=== PATIENT | female | born 1955 | race Caucasian/White ===

== ENCOUNTER 2020-01-14 09:03 | Emergency (ER) | payer MEDICARE ==
[~2020-01-14] VITALS: Ht 167.6 cm; Wt 81.6 kg
--- NOTE | 2020-01-14 09:52 | Emergency Department Note ---
History of Present Illnes History of Present Illness Chief Complaint: General Medicine Complaints History of Present Illness This is a 64 year old female arrived to the ED with right hand/wrist pain after sustaining a mechanical fall yesterday. Patient states pain is well- controlled only hurts to move. Patient denies any head injury or any other trauma. Patient is right-hand dominant.. Historian: Patient, Family Member Arrival Mode: Car Radiation: Reports non-radiation Severity: mild Onset quality: sudden Timing of current episode: intermittent Progression: waxing and waning Relieving factors: immobilization Exacerbating factors: movement Treatments prior to arrival: none Past Medical/Family History Physician Review I have reviewed the patient's past medical and family history. Any updates have been documented here. Past Medical History Recent Fever: No Clinical Suspicion of Infectio: No New/Unexplained Change in Ment: No Past Medical History: Hypertension, COPD, Cancer, Hyperlipedemia Other Medical History: LUNG CANCER - TREATED PSORIASIS Past Surgical History: Hysterectomy Family History Family history of heart diseas: No Other Last Tetanus: UTD Physical Exam Related Data Allergies: Coded Allergies: No Known Allergies (Unverified , 01/14/20) Triage Vital Signs Vital Signs Date Time Temp Pulse Resp B/P (MAP) Pulse Ox O2 Delivery O2 Flow Rate FiO2 01/14/20 09:06 97.5 110 22 184/117 96 Vital signs reviewed: Yes Physical Exam CONSTITUTIONAL Constitutional: Present well-developed, Present well-nourished HENT HENT: Present normocephalic, Present atraumatic, Present oropharynx clear/moist, Present nose normal HENT L/R: Present left ext ear normal, Present right ext ear normal EYES Eyes: Reports PERRL, Reports conjunctivae normal NECK Neck: Present ROM normal PULMONARY Pulmonary: Present effort normal, Present breath sounds normal CARDIOVASCULAR Cardiovascular: Present regular rhythm, Present heart sounds normal, Present capillary refill normal, Present normal rate GASTROINTESTINAL Abdominal: Present soft, Present nontender, Present bowel sounds normal GENITOURINARY Genitourinary: Present exam deferred SKIN Skin: Present warm, Present dry MUSCULOSKELETAL Musculoskeletal: Present tenderness, Present swelling; Absent ROM normal NEUROLOGICAL Neurological: Present alert, Present oriented x 3, Present no gross motor or sensory deficits PSYCHOLOGICAL Psychological: Present mood/affect normal, Present judgement normal Results Imaging Imaging results reviewed: Yes Assessment & Plan Medical Decision Making MDM 64-year-old well-appearing female arrived to the ED after sustaining a mechanical fall resulting in right wrist swelling and ecchymoses. X-ray reviewed shows no fracture, no snuffbox tenderness is noted on exam. Patient with normal distal radial pulse, soft compartments, patient placed in a wrist splint for comfort and outpatient referral given. Patient's well-controlled time of discharge. Assessment & Plan Final Impression: (1) Wrist sprain Depart Disposition: HOME, SELF-CARE Last Vital Signs Date Time Temp Pulse Resp B/P (MAP) Pulse Ox O2 Delivery O2 Flow Rate FiO2 01/14/20 09:06 97.5 110 22 184/117 96 ALEKSANDRA CESAR DO Jan 14, 2020 09:51
--- NOTE | 2020-01-14 09:57 | Diagnostic Imaging Report ---
HAND 3+ VIEWS RIGHT, WRIST COMPLETE RIGHT, FOREARM RIGHT 2 VIEW - 3 views HISTORY: Pain. COMPARISON: None available. FINDINGS: Bones: No acute displaced fracture. Osseous alignment is within normal limits. Joints: The joint spaces are well-maintained. Soft tissues: The soft tissues appear unremarkable. IMPRESSION: No acute radiographic abnormality. Signed by: Ray Trinidad MD on 01/14/2020 9:53 AM
== END 2020-01-14 10:10 | disposition home or self-care (01) ==
LOC: ER 09:03
DX: M25.531 Pain in right wrist (principal); S63.501A Unspecified sprain of right wrist, initial encounter; W18.30XA Fall on same level, unspecified, initial encounter; Y92.003 Bedroom of unspecified non-institutional (private) residence as the place of occurrence of the external cause; I10 Essential (primary) hypertension; E78.5 Hyperlipidemia, unspecified; J44.9 Chronic obstructive pulmonary disease, unspecified; Z85.118 Personal history of other malignant neoplasm of bronchus and lung; Z87.891 Personal history of nicotine dependence
CPT/HCPCS: 99283